=== PATIENT | male | born 1970 | race Caucasian/White ===

== ENCOUNTER 2019-05-10 17:33 | Emergency (ER) | payer SELFPAY ==
[~2019-05-10] VITALS: Ht 185.4 cm; Wt 98.9 kg
[~2019-05-10 17:33] MED LIST: AMLO5TAB9 PO; ASPI-807 PO; ENAL10TA PO; HYDR-4384 PO
--- NOTE | 2019-05-10 18:00 | NUR ---
patient came in the ER c/o "On/Off chest pain x2-3 days been having issues with BP for a while today was worse left arm feels tingly". on room air, breathing evenly and unlabored. connected to the monitor and pulse ox. IV access on the left hand G20. will continue to monitor accordingly.
[2019-05-10 18:15] LABS: BASOPHILS # (AUTO) 0.1 /CMM (0.0-0.2); BASOPHILS % (AUTO) 0.8 % (0.0-2.0); EOSINOPHILS % (AUTO) 0.7 % (0.0-6.0); HEMATOCRIT 55 % (39-51); LYMPHOCYTES # (AUTO) 3.6 /CMM (0.8-4.8); LYMPHOCYTES % (AUTO) 25.9 % (20.0-44.0); MEAN CORPUSCULAR HGB CONC 35 g/dl (31.0-36.0); MEAN CORPUSCULAR VOLUME 90 fL (80-96); MONOCYTES # (AUTO) 1.1 /CMM (0.1-1.30); NEUTROPHILS % (AUTO) 64.6 % (43.0-81.0); PLATELET COUNT (AUTO) 221 /CMM (150-450); RED BLOOD CELL COUNT(AUTO) 6.18 MIL/uL (4.5-6.0); WHITE BLOOD COUNT (AUTO) 13.9 K/uL (4.3-11.0)
[2019-05-10 18:18] LABS: HEMOGLOBIN 19.1 g/dL (13.5-17.5)
[2019-05-10 18:26] LABS: CALCIUM, SERUM 9.2 mg/dL (8.5-10.1); CARBON DIOXIDE 25 mmol/L (21-32); CHLORIDE 98 mmol/L (98-107); CREATININE 0.9 mg/dL (0.6-1.3); GLUCOSE 163 mg/dL (74-106); POTASSIUM 4.1 mmol/L (3.5-5.1); SODIUM SERUM 135 mmol/L (136-145); UREA NITROGEN, BLOOD 16 mg/dL (7-18)
--- NOTE | 2019-05-10 19:21 | NUR ---
assumed care, received report from am shift rn bel. pt resting in bed quietly, no acute distress ntoed, resp even and unlabored. pt denies pain or discomfort at this time. will continue to monitor pt closely.
[2019-05-10 19:25] LABS: LYMPHOCYTES % (MANUAL) 26 % (16-48); MONOCYTES % (MANUAL) 9 % (0-11.0); NEUTROPHILS % (MANUAL) 65 (42-76)
--- NOTE | 2019-05-10 21:00 | NUR ---
repeat ekg in progress. pt remains pain free a tthis time. will continue to monitor pt closely.
--- NOTE | 2019-05-10 22:20 | NUR ---
IV removed. Catheter intact and site benign. Pressure and 4x4 applied to site. No bleeding noted. Patient discharged to home in stable condition. Written and verbal after care instructions given. Patient verbalizes understanding of instruction. ambulatory with a steady gait noted. pt aaox4 no acute distress noted, resp even and unlabored. pt s/o at bedside to take pt home.
[2019-05-10 22:24] VITALS: BP 118/64
== END 2019-05-10 22:26 | disposition home or self-care (01) ==
LOC: ER 17:33
DX: R07.89 Other chest pain (principal); I10 Essential (primary) hypertension; F17.200 Nicotine dependence, unspecified, uncomplicated; E78.5 Hyperlipidemia, unspecified; F10.10 Alcohol abuse, uncomplicated; I45.10 Unspecified right bundle-branch block; Y90.9 Presence of alcohol in blood, level not specified; Z79.82 Long term (current) use of aspirin; Z90.89 Acquired absence of other organs; Z98.890 Other specified postprocedural states
CPT/HCPCS: 36415; 71045-TC; 80048-TC; 84484-TC; 85025-TC

== ENCOUNTER 2021-07-05 20:09 | Inpatient (IN) | payer MEDICAID, OTHER ==
[~2021-07-05] VITALS: Ht 182.9 cm; Wt 110.7 kg
[~2021-07-05 20:09] MED LIST changes: +AMLO-212 PO; -AMLO5TAB9 PO; -ENAL10TA PO; +ENAL10TA39 PO
--- NOTE | 2021-07-05 20:30 | NUR ---
PT C/O COUGHING OUT BLOOD STARTED TODAY. HX OF SMOKING 2 PACKS A DAY. DENIES ANY PAIN OR DISCOMFORT. O2 SAT 99 ON ROOM AIR.
[2021-07-05] MEDS ORDERED: IV NS 0.9% 1,000 ML BAG IV ONE (21:00)
[2021-07-05] MEDS ORDERED: AZIT250T13 PO (21:31)
[2021-07-05] MEDS ORDERED: AMOX-430 PO (21:31)
[2021-07-05 21:32] LABS: BASOPHILS # (AUTO) 0.1 K/uL (0.0-0.2); BASOPHILS % (AUTO) 0.7 % (0.0-2.0); HEMATOCRIT 47 % (39-51); HEMOGLOBIN 15.7 g/dL (13.5-17.5); LYMPHOCYTES # (AUTO) 2.5 K/uL (0.8-4.8); LYMPHOCYTES % (AUTO) 28.3 % (20.0-44.0); MEAN CORPUSCULAR HGB CONC 33 g/dl (31.0-36.0); MEAN CORPUSCULAR VOLUME 90 fL (80-96); MONOCYTES # (AUTO) 0.9 K/uL (0.1-1.30); MONOCYTES % (AUTO) 9.9 % (2.0-12.0); NEUTROPHILS # (AUTO) 5.3 K/uL (1.8-8.9); NEUTROPHILS % (AUTO) 60.1 % (43.0-81.0); PLATELET COUNT (AUTO) 201 K/uL (150-450); RED BLOOD CELL COUNT(AUTO) 5.25 MIL/uL (4.5-6.0); WHITE BLOOD COUNT (AUTO) 8.9 K/uL (4.3-11.0)
[2021-07-05 21:53] LABS: CARBON DIOXIDE 27 mmol/L (21-32); CHLORIDE 105 mmol/L (98-107); CREATININE 1.1 mg/dL (0.6-1.3); GLUCOSE 95 mg/dL (74-106); POTASSIUM 3.6 mmol/L (3.5-5.1); SODIUM SERUM 143 mmol/L (136-145); UREA NITROGEN, BLOOD 15 mg/dL (7-18)
--- NOTE | 2021-07-05 22:00 | NUR ---
NOTIFIED OF PATIENTS B/P
[2021-07-05 22:04] LABS: ALANINE AMINOTRANSFERASE 48 U/L (12-78); ALKALINE PHOSPHATASE 73 U/L (46-116); ASPARTATE AMINOTRANSFERASE 21 U/L (15-37); BILIRUBIN,DIRECT 0.1 mg/dL (0.0-0.2); BILIRUBIN,TOTAL 0.2 mg/dL (0.2-1.0)
--- NOTE | 2021-07-05 22:16 | NUR ---
NOTIFIED PT COUGHING OUT BLOOD.
--- NOTE | 2021-07-05 22:39 | NUR ---
MD SEEING PATIENT AT BEDSIDE
--- NOTE | 2021-07-05 22:59 | NUR ---
PATIENT PENDING ADMISSION
[2021-07-05] MEDS ORDERED: MORPHINE SULFATE INJ 2 MG/ML DISP.SYRIN IV PRN (23:00)
[2021-07-05] MEDS ORDERED: ENOXAPARIN SODIUM 40 MG/0.4 ML DISP.SYRIN SQ SCH (23:00)
[2021-07-05] MEDS ORDERED: HYDROCODONE/APAP 5/325MG TABLET PO PRN (23:00)
[2021-07-05] MEDS ORDERED: ONDANSETRON HCL/PF 4 MG/2 ML VIAL IVP PRN (23:00)
[2021-07-05] MEDS ORDERED: LABETALOL 20 MG/4 ML VIAL IV PRN (23:00)
[2021-07-05] MEDS ORDERED: ACETAMINOPHEN 325 MG TABLET PO PRN (23:00)
[2021-07-05] MEDS ORDERED: CT SWABBABLE VALVE TRANS SET 1 EA INFUS.SET MC ONE (23:20)
[2021-07-05] MEDS ORDERED: IOHEXOL-300 100 ML VIAL IV ONE (23:20)
[2021-07-05] MEDS ORDERED: IV NS 0.9% 250 ML IV ONE (23:20)
--- NOTE | 2021-07-05 23:30 | NUR ---
PT TAKEN TO RADIOLOGY
[2021-07-05] MEDS ORDERED: hydrALAZINE HCL IV 20 MG VIAL ONE (23:46)
[2021-07-05] MEDS: hydrALAZINE HCL IV 20 MG VIAL IV PRN (23:53)
[2021-07-06] MEDS ORDERED: DEXTROSE 50%-WATER 50 ML DISP.SYRIN IV PRN
[2021-07-06] MEDS ORDERED: INSULIN REGULAR, HUMAN 100 UNIT/ML 3 ML VIAL SQ PRN
[2021-07-06] MEDS ORDERED: ENOXAPARIN SODIUM 40 MG/0.4 ML DISP.SYRIN SQ ONE (00:11)
[2021-07-06] MEDS: BLOOD SUGAR DIAGNOSTIC 1 EACH STRIP IN SCH ×5 (00:23→21:38)
--- NOTE | 2021-07-06 00:23 | NUR ---
BLOOD SUGAR 95
[2021-07-06] MEDS ORDERED: ONDANSETRON HCL/PF 4 MG/2 ML VIAL ONE (00:32)
[2021-07-06] MEDS ORDERED: ACETAMINOPHEN 325 MG TABLET ONE (00:33)
--- NOTE | 2021-07-06 00:41 | NUR ---
TYLENOL 650 MG GIVEN PO FOR HEADACHE 12/27
[2021-07-06 01:30] LABS: HEMOGLOBIN 15.7 g/dL (13.5-17.5)
--- NOTE | 2021-07-06 02:00 | NUR ---
PT RESTING COMFORTABLY DENIES ANY PAIN OR DISCOMFORT.
[2021-07-06 04:34] LABS: BASOPHILS # (AUTO) 0.1 K/uL (0.0-0.2); BASOPHILS % (AUTO) 0.8 % (0.0-2.0); HEMATOCRIT 47 % (39-51); HEMOGLOBIN 15.9 g/dL (13.5-17.5); LYMPHOCYTES # (AUTO) 2.7 K/uL (0.8-4.8); MEAN CORPUSCULAR HGB CONC 34 g/dl (31.0-36.0); MEAN CORPUSCULAR VOLUME 89 fL (80-96); MONOCYTES % (AUTO) 9.8 % (2.0-12.0); NEUTROPHILS # (AUTO) 6.4 K/uL (1.8-8.9); NEUTROPHILS % (AUTO) 62.4 % (43.0-81.0); PLATELET COUNT (AUTO) 202 K/uL (150-450); RED BLOOD CELL COUNT(AUTO) 5.27 MIL/uL (4.5-6.0); WHITE BLOOD COUNT (AUTO) 10.3 K/uL (4.3-11.0)
[2021-07-06 04:57] LABS: ALBUMIN 3.7 g/dL (3.4-5.0); BILIRUBIN,TOTAL 0.4 mg/dL (0.2-1.0); CALCIUM, SERUM 8.6 mg/dL (8.5-10.1); MAGNESIUM 1.8 mg/dL (1.8-2.4); PHOSPHORUS 3.8 mg/dL (2.5-4.9); POTASSIUM 3.8 mmol/L (3.5-5.1); TOTAL PROTEIN, SERUM 7.6 g/dL (6.4-8.2)
--- NOTE | 2021-07-06 06:09 | NUR ---
317-1 REPORT AFTER CHANGE OF SHIFT
--- NOTE | 2021-07-06 07:44 | NUR ---
report given to Maurisio LONGO for fredi.
--- NOTE | 2021-07-06 07:45 | NUR ---
wheeled patient via gurney accompanied by RN and emt in no distress. RN at bedside to assume care.
--- NOTE | 2021-07-06 08:10 | NUR ---
MS RN OPENING/ ADMISSION NOTE RECEIVED PT FROM ER. PATIENT TRANSPORTED VIA GURNEY ACCOMPANIED BY 2 NURSES. PATIENT IS ALERT/ ORIENTED X 4 WITH NO SIGNS OF RESPIRATORY DISTRESS. PT IS STABLE ON ROOM AIR, TOLERATING WELL. NO SOB OR S/S OF RESPIRATORY DISTRESS NOTED. PT HAS NO C/O PAIN OR DISCOMFORT AT THIS TIME. PATIENT WITH IV ACCESS ON THE LEFT HAND G22 ON SALINE LOCK, PATENT AND INTACT. SKIN IS INTACT. PATIENT IS AMBULATORY. PATIENT ABLE TO TRANSFER TO HIS BED INDEPENDENTLY WITHOUT DIFFICULTY. ADMISSION INQUIRIES AND TEACHINGS DONE. SAFETY PRECAUTIONS MAINTAINED. BED IN LOWEST LOCKED POSITION, HOB ELEVATED, SIDE RAILS UP X2. CALL LIGHT AND TABLE WITHIN REACH. WILL CONTINUE WITH PLAN OF CARE.
[2021-07-06] MEDS ORDERED: ENOXAPARIN SODIUM 40 MG/0.4 ML DISP.SYRIN SQ SCH (09:00)
[2021-07-06] MEDS: ASPIRIN 81 MG TAB.CHEW PO SCH (09:00)
[2021-07-06] MEDS ORDERED: IOHEXOL-350 100 ML VIAL IV ONE (09:20)
[2021-07-06] MEDS ORDERED: CT SWABBABLE VALVE TRANS SET 1 EA INFUS.SET MC ONE (09:20)
[2021-07-06] MEDS ORDERED: IV NS 0.9% 250 ML IV ONE (09:20)
[2021-07-06] MEDS: ENALAPRIL MALEATE (10 MG) 10 MG TABLET PO SCH ×2 (09:41→17:31)
[2021-07-06] MEDS: AMLODIPINE BESYLATE 5 MG TABLET PO SCH ×2 (09:41→17:31)
--- NOTE | 2021-07-06 09:50 | NUR ---
KENNEL MANAGER NOTE DR. PICKETT NOTIFIED OF ADMISSION. WITH ORDER TO REFER PATIENT TO DR. IRELAND FOR PULMO CONSULT. DR. IRELAND NOTIFIED. WILL CONTINUE TO MONITOR PATIENT.
--- NOTE | 2021-07-06 11:30 | NUR ---
BOWSTRING MAKER NOTE PATIENT SEEN BY DR. RODRIGUEZ, WITH NO NEW ORDER AT THIS TIME.
[2021-07-06 12:06] VITALS: BP 150/101
[2021-07-06] MEDS: LEVOFLOXACIN (250MG) 250 MG TABLET PO SCH (14:17)
[2021-07-06 16:00] VITALS: BP 164/108
--- NOTE | 2021-07-06 16:00 | NUR ---
SAFETY PERSON NOTE PATIENT SEEN BY KAYLA MACHADO OF DR. PATINO, WITH TO DO CT OF ABDOMEN AND PELVIS WITH CONTRAST TOMORROW. PATIENT VERBALIZED UNDERSTANDING AND APPRECIATION. CONSENT SIGNED AND ATTACHED TO THE CHART. WILL CONTINUE TO MONITOR PATIENT.
[2021-07-06] MEDS: hydrALAZINE HCL IV 20 MG VIAL IV PRN ×2 (16:11→23:53)
--- NOTE | 2021-07-06 16:20 | NUR ---
GAME PRESERVE MANAGER NOTE PATIENT'S BP 164/108 HR 68. PATIENT DOES NOT SHOW ANY SIGNS AND SYMPTOMS OF HYPERTENSION. HYDRALAZINE IV GIVEN PRN MEDICATION. LATEST TELEMONITOR READING IS SR AT 80'S. WILL CONTINUE TO MONITOR PATIENT.
[2021-07-06] MEDS: NICOTINE PATCH (21MG) 21 MG PATCH.TD24 TD SCH (18:11)
--- NOTE | 2021-07-06 18:15 | NUR ---
CORPORATE REAL ESTATE SPECIALIST NOTE PATIENT RECHECKED BP. LATEST BP 161/96 WITH HR 80. NO SIGNS AND SYMPTOMS OF HYPERTENSION. DUE ANTIHYPERTENSIVE MEDICATIONS GIVEN, PATIENT IS RESTLESS AND HAVE COMPULSION TO SMOKE. DR. RODRIGUEZ NOTIFIED WITH ORDERS VERIFIED. ORDERS MADE AND CARRIED OUT FOR NICOTINE PATCH. PATIENT IS A HEAVY SMOKER AND SMOKES 2 PACKS A DAY. LAST SMOKE YESTERDAY BEFORE HOSPITALIZATION. WILL CONTINUE TO MONITOR PATIENT.
--- NOTE | 2021-07-06 18:52 | NUR ---
MS RN CLOSING NOTE PATIENT IS ASLEEP ON BED BUT AROUSABLE. HE IS ALERT/ ORIENTED X 4 WITH NO SIGNS OF RESPIRATORY DISTRESS. PT IS STABLE ON ROOM AIR, TOLERATING WELL. NO SOB OR S/S OF RESPIRATORY DISTRESS NOTED. PT HAS NO C/O PAIN OR DISCOMFORT AT THIS TIME. PATIENT WITH IV ACCESS ON THE LEFT HAND G22 ON SALINE LOCK, PATENT AND INTACT. SKIN IS INTACT. PATIENT IS AMBULATORY. SAFETY PRECAUTIONS MAINTAINED. BED IN LOWEST LOCKED POSITION, HOB ELEVATED, SIDE RAILS UP X2. CALL LIGHT AND TABLE WITHIN REACH. WILL ENDORSE PATIENT FOR CONTINUITY OF CARE.
--- NOTE | 2021-07-06 19:15 | NUR ---
DIANETIC COUNSELOR OPENING NOTES: RECEIVED PATIENT IN BED, AWAKE, A/OX4 NO RESPIRATORY DISTRESS NOTED. CALL LIGHT WITHIN REACH. BED IN LOWEST AND LOCKED POSITION. NO COMPLAIN OF PAIN. PATIENT IS CALM AND ON THE PHONE.
[2021-07-06 20:00] VITALS: BP 142/80
--- NOTE | 2021-07-06 21:39 | NUR ---
blood sugar 97 no insulin coverage needed at this time.
--- NOTE | 2021-07-06 23:03 | NUR ---
NPO EXCEPT MEDS POST [place]- INSTRUCTED PATIENT, VERBALIZED UNDERSTANDING, CMO & PRESIDENT AWARE.
[2021-07-06 23:53] VITALS: BP 160/106
[2021-07-07] VITALS (7 sets, daily range): BP systolic 118–160; BP diastolic 78–106
[2021-07-07 06:12] LABS: BASOPHILS % (AUTO) 0.4 % (0.0-2.0); EOSINOPHILS % (AUTO) 0.9 % (0.0-6.0); HEMATOCRIT 50 % (39-51); HEMOGLOBIN 16.7 g/dL (13.5-17.5); LYMPHOCYTES # (AUTO) 3.2 K/uL (0.8-4.8); LYMPHOCYTES % (AUTO) 30.8 % (20.0-44.0); MEAN CORPUSCULAR HGB CONC 34 g/dl (31.0-36.0); MEAN CORPUSCULAR VOLUME 90 fL (80-96); MONOCYTES # (AUTO) 1.2 K/uL (0.1-1.30); MONOCYTES % (AUTO) 11.3 % (2.0-12.0); NEUTROPHILS # (AUTO) 5.8 K/uL (1.8-8.9); NEUTROPHILS % (AUTO) 56.6 % (43.0-81.0); PLATELET COUNT (AUTO) 214 K/uL (150-450); RED BLOOD CELL COUNT(AUTO) 5.53 MIL/uL (4.5-6.0); WHITE BLOOD COUNT (AUTO) 10.3 K/uL (4.3-11.0)
[2021-07-07] MEDS: BLOOD SUGAR DIAGNOSTIC 1 EACH STRIP IN SCH ×2 (06:44→11:56)
--- NOTE | 2021-07-07 06:44 | NUR ---
blood sugar 129, no coverage needed.
[2021-07-07 06:59] LABS: CALCIUM, SERUM 9.5 mg/dL (8.5-10.1); CREATININE 1.1 mg/dL (0.6-1.3); MAGNESIUM 2.2 mg/dL (1.8-2.4); PHOSPHORUS 4.2 mg/dL (2.5-4.9); POTASSIUM 4.9 mmol/L (3.5-5.1)
[2021-07-07] MEDS: ASPIRIN 81 MG TAB.CHEW PO SCH (08:42)
[2021-07-07] MEDS: ENALAPRIL MALEATE (10 MG) 10 MG TABLET PO SCH ×2 (08:43→16:33)
[2021-07-07] MEDS: AMLODIPINE BESYLATE 5 MG TABLET PO SCH ×2 (08:43→16:33)
[2021-07-07] MEDS: NICOTINE PATCH (21MG) 21 MG PATCH.TD24 TD SCH (08:43)
[2021-07-07] MEDS ORDERED: IV NS 0.9% 250 ML IV ONE (09:38)
[2021-07-07] MEDS ORDERED: IOHEXOL-300 100 ML VIAL IV ONE (09:38)
[2021-07-07] MEDS ORDERED: CT SWABBABLE VALVE TRANS SET 1 EA INFUS.SET MC ONE (09:38)
[2021-07-07] MEDS: LEVOFLOXACIN (250MG) 250 MG TABLET PO SCH (12:26)
--- NOTE | 2021-07-07 17:00 | NUR ---
MECHANICAL COMMISSIONING ENGINEERSPORTS ATHLETIC TRAINER NOTE PATIENT DISCHARGED @ 1640 VIA PRIVATE CAR. STABLE, A/O X4. STABLE ON ROOM AIR - NO SOB NOTED. NO DISTRESS/DISCOMFORT NOTED. ALL EXITCARE AND PATIENT EDUCATION REVIEWED WITH PATIENT. ALL DISCHARGE PAPERWORK GIVEN TO PATIENT. IV ACCESS REMOVED. WRISTBAND REMOVED. PATIENT ACCOMPANIED TO LOBBY BY MYSELF. MD AND CHARGE NURSE AWARE OF DC.
== END 2021-07-07 16:40 | disposition home or self-care (01) | DRG 145 ==
LOC: ER 20:15 → TRANSITION 23:26 → TELE 07-06 07:39
PROVIDERS: ADMIT Internal Medicine; ATTEND Student in an Organized Health Care Education/Training Program
DX: J20.9 Acute bronchitis, unspecified (principal); K76.0 Fatty (change of) liver, not elsewhere classified; E11.65 Type 2 diabetes mellitus with hyperglycemia; E78.5 Hyperlipidemia, unspecified; I10 Essential (primary) hypertension; Z79.82 Long term (current) use of aspirin; Z20.822 Contact with and (suspected) exposure to COVID-19; Z90.49 Acquired absence of other specified parts of digestive tract; Z79.899 Other long term (current) drug therapy; Z72.0 Tobacco use; I25.10 Atherosclerotic heart disease of native coronary artery without angina pectoris; N28.9 Disorder of kidney and ureter, unspecified; J98.11 Atelectasis
CPT/HCPCS: 36415; 71045-TC; 71260-TC; 80048-TC; 80053-TC; 80076-TC; 82962-TC; 83735-TC; 84100-TC; 84484-TC; 85025-TC; 85027-TC; 85378-TC; 87081-TC; G0378; J0360; J1650; J2270; J2405; J7050; Q9967